=== PATIENT | female | born 1970 | race Hispanic/Latino ===

== ENCOUNTER 2017-11-25 22:26 | Emergency (ER) | payer SELFPAY ==
[2017-11-25 23:22] LABS: Basophils # (Auto) 0.1 K/mm3 (0.0-0.1); Eosinophils # (Auto) 0.4 K/mm3 (0.0-0.4); Hematocrit 39.5 % (30.3-42.9); Hemoglobin 13.1 gm/dl (10.1-14.3); Lymphocytes # (Auto) 1.6 K/mm3 (1.2-5.4); Mean Corpuscular HGB Conc 33 % (30-34); Mean Corpuscular Hemoglobin 29 pg (28-32); Mean Corpuscular Volume 87 fl (79-97); Monocytes # (Auto) 0.6 K/mm3 (0.0-0.8); Monocytes % (Auto) 7.7 % (0.0-7.3); Platelet Count 269 K/mm3 (140-440); Red Blood Count 4.56 M/mm3 (3.65-5.03); Red Cell Distribution Width 14.5 % (13.2-15.2)
[2017-11-25 23:35] LABS: BUN/Creatinine Ratio 25; Blood Urea Nitrogen 15 mg/dL (7-17); Calcium 8.5 mg/dL (8.4-10.2); Hemolysis Index 4
[2017-11-26 04:05] LABS: Bilirubin,Urine NEG (Negative); Blood,Urine NEG (Negative); Color,Urine Yellow (Yellow); Mucus,Urine FEW /HPF; Protein,Urine <15 mg/dL mg/dL (Negative); Urobilinogen,Urine < 2.0 mg/dL (<2.0)
[2017-11-26 04:09] LABS: Benzodiazepines Screen,Urine PRESUMPTIVE NEGATIVE; Cannabinoid Screen,Urine PRESUMPTIVE NEGATIVE; Methadone Screen,Urine PRESUMPTIVE NEGATIVE; Opiate Screen,Urine PRESUMPTIVE NEGATIVE
[2017-11-26 04:10] LABS: Cocaine Screen,Urine PRESUMPTIVE NEGATIVE
[2017-11-26 04:53] LABS: Amphetamine Screen,Urine PRESUMPTIVE POSITIVE
--- NOTE | 2017-11-26 12:47 | Emergency Department Report ---
ED Psych HPI - General Chief Complaint: Psych Stated Complaint: MENTAL HEALTH Time Seen by Provider: 11/26/17 10:00 Source: patient Mode of arrival: Ambulatory Limitations: No Limitations - History of Present Illness Initial Comments: Patient son states that his mom believed that someone is trying to kill her and her mother and he called the Police Department per nurses note documentation. Patient is confused and does not know why she is in the hospital. She said she' s been hearing voices has seen things recently. She also admitted to doing street drugs. She looks very disoriented and incoherent. Patient is a poor historian. She did not deny what is documented in the chart regarding her thinking someone wants to kill her and her mother. Complaint: feels depressed -: Sudden Associated Psychiatric Symptoms: racing thoughts, auditory hallucinations, visual hallucinations, delusions History of same: Yes Quality: constant Improves With: none Worsens With: none Context: recent drug abuse Associated Symptoms: denies other symptoms Treatments Prior to Arrival: none - Related Data Allergies Allergy/AdvReac Type Severity Reaction Status Date / Time Penicillins Allergy Swelling Verified 11/25/17 22:32 ED Review of Systems ROS: Stated complaint: MENTAL HEALTH Other details as noted in HPI Comment: All other systems reviewed and negative Constitutional: denies: chills, fever Eyes: vision change ENT: denies: ear pain Respiratory: no symptoms reported. denies: shortness of breath Cardiovascular: denies: chest pain, palpitations Endocrine: no symptoms reported Gastrointestinal: denies: abdominal pain, nausea, vomiting, diarrhea Genitourinary: denies: urgency, dysuria, frequency Musculoskeletal: denies: back pain, joint swelling, myalgia Skin: denies: rash, lesions, change in color Neurological: denies: headache, weakness, numbness, paresthesias Psychiatric: auditory hallucinations, visual hallucinations. denies: homicidal thoughts, suicidal thoughts Hematological/Lymphatic: denies: easy bleeding, easy bruising ED Past Medical Hx - Past Medical History Previous Medical History?: Yes Hx Asthma: Yes Additional medical history: breast CA, - Surgical History Past Surgical History?: Yes Additional Surgical History: tonsilectomy, lumpectomy - Social History Smoking Status: Current Every Day Smoker Substance Use Type: None ED Physical Exam - General Limitations: No Limitations General appearance: alert, in no apparent distress, anxious - Head Head exam: Present: atraumatic, normocephalic, normal inspection - Eye Eye exam: Present: normal appearance, PERRL, EOMI Pupils: Present: normal accommodation - ENT ENT exam: Present: normal exam, normal orophraynx, mucous membranes moist - Neck Neck exam: Present: normal inspection, full ROM. Absent: tenderness - Respiratory Respiratory exam: Present: normal lung sounds bilaterally - Cardiovascular Cardiovascular Exam: Present: regular rate - GI/Abdominal GI/Abdominal exam: Present: soft, normal bowel sounds. Absent: tenderness, guarding - Extremities Exam Extremities exam: Present: normal inspection, full ROM - Back Exam Back exam: Present: full ROM - Neurological Exam Neurological exam: Present: alert - Skin Skin exam: Present: warm, dry, intact, normal color ED Course Vital Signs 11/25/17 11/26/17 22:32 10:41 Temperature 98.7 F 98.1 F Pulse Rate 98 H 78 Respiratory 20 18 Rate Blood Pressure 125/82 Blood Pressure 113/82 [Right] O2 Sat by Pulse 98 98 Oximetry - Reevaluation(s) Reevaluation #1: 11/26/17 12:51 1013 for filled out and psychiatric consult initiated. ED Medical Decision Making - Lab Data Result diagrams: 11/25/17 23:01 11/25/17 23:01 - Medical Decision Making Delusional disorder. Auditory or visual hallucination. Critical care attestation.: If time is entered above; I have spent that time in minutes in the direct care of this critically ill patient, excluding procedure time. ED Disposition Clinical Impression: Delusional disorder currently symptomatic, Hallucinations, Amphetamine abuse Disposition: DC/TX-65 PSY HOSP/PSY UNIT Is pt being admited?: No Does the pt Need Aspirin: No Condition: Stable Referrals: KARLEE HERNANDEZ MD [Primary Care Provider] - 3-5 Days
[2017-11-26] MEDS ORDERED: HABITROL TD ONE (16:00)
[2017-11-26] MEDS: HABITROL TD SCH (17:20)
--- NOTE | 2017-11-26 18:46 | Consultation ---
History of Present Illness - Reason for Consult Consult date: 11/26/17 Reason for consult: psychiatric evaluation, paranoia - Chief Complaint Chief complaint: "My family was concerned." - History of Present Psychiatric Illness 47 year old WF seen for psychiatric evaluation in the ER. Per the record: Patient's son states that his mom believed that someone is trying to kill he and her mother. He called the Police Department per nurses note documentation. Per the record, she has been hearing voices has seen things recently. She preferred to rest rather than participate in an interview. She admitted to using methamphetamine. She states she does not use it often. She states she was paranoid but is feeling better. She denies any mental health history. She asks to smoke. She is agreeable to a nicotine patch. She smokes 1PPD. Medications and Allergies Allergies Allergy/AdvReac Type Severity Reaction Status Date / Time Penicillins Allergy Swelling Verified 11/25/17 22:32 Active Meds: Active Medications Nicotine (Habitrol) 21 mg TD QAM [facility] Last Admin: 11/26/17 17:20 Dose: 21 mg Past psychiatric history - Past Medical History Past Medical History: other (asthma, breast ca) Past Surgical History: Other (lumpectomy) - past Psychiatric treatment and history psychiatric treatment history: denies - Social History Social history: lives with family Mental Status Exam - Vital signs Last Vital Signs Temp 98.1 F 11/26/17 10:41 Pulse 78 11/26/17 10:41 Resp 18 11/26/17 10:41 BP 113/82 11/26/17 10:41 Pulse Ox 98 11/26/17 10:41 - Exam Orientation: time, place, person Affect: other (blunted) Mood: other (indifferent) Thought content: paranoia (reports it has improved) Thought Process: Intact (limited in scope) Perceptions: auditory, hallucinations (denies now) Speech: normal rate and pattern Concentration: other (prefers to sleep) Motor activity: normal Level of consciousness: other (drowsy) Memory: Intact Interaction: apathetic Results Result Diagrams: 11/25/17 23:01 11/25/17 23:01 Abnormal lab results 11/25/17 11/25/17 11/25/17 Range/Units 23:01 23:01 23:01 [place] % (Auto) 7.7 H (0.0-7.3) % Eos % (Auto) 6.0 H (0.0-4.3) % Sodium 136 L (137-145) mmol/L Potassium 3.5 L (3.6-5.0) mmol/L Carbon Dioxide 20 L (22-30) mmol/L Creatinine 0.6 L (0.7-1.2) mg/dL Glucose 116 H (65-100) mg/dL Acetaminophen < 5.0 L (10.0-30.0) ug/mL All other labs normal. 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 Hold off on medications unless psychotic symptoms persist nicotine patch, 21mg TD daily ordered
[2017-11-27] MEDS: HABITROL TD SCH (11:50)
--- NOTE | 2017-11-27 12:16 | Progress Note ---
Subjective - Reason for Consult Consult date: 11/27/17 Reason for consult: Psychiatry Follow-up - Chief Complaint Chief complaint: "Sanjay" 47 year old WF seen for psychiatric evaluation in the ER. Per the record: Patient's son states that his mom believed that someone is trying to kill he and her mother. He called the Police Department per nurses note documentation. Per the record, she has been hearing voices has seen things recently. Today the patient is calm and cooperative during the assessment. She stated that she get "high on meth sometimes." She feels that she can stop using "meth" at any time. She stated being in rehabs for substance abuse in the past. She denies being depressed, having any manic episodes in the past, or having a psychotic do when asked. She denies SI/HI's and AVH's. Mental Status Exam - Vital signs Last Vital Signs Temp 97.9 F 11/27/17 07:28 Pulse 83 11/27/17 07:28 Resp 18 11/27/17 07:28 BP 123/80 11/27/17 07:28 Pulse Ox 97 11/27/17 07:28 - Exam Narrative exam: MSE: Appearance: calm, cooperative Behavior: regular eye contact Speech: regular rate and tone Mood: "okay" Affect: congruent to mood Thought Process: circumstantial Thought Content: denies SI/HI's and AVH's, disorganized Motor Activity: sitting up in bed Cognition: A/O x3 Insight: variable Judgment: variable Assessment and Plan Impression: Substance Induced Psychosis. Substance Use DO (amphetamines). Today the patient is calm and cooperative during the assessment. DDx: R/O Mood DO Recommendation: Evaluate 1013 in 24 hours and gather collateral information to help determine proper treatment and dispo. Hold off on medications unless psychotic symptoms persist.
[2017-11-28 08:01] VITALS: BP 104/54
--- NOTE | 2017-11-28 10:28 | Progress Note ---
Subjective - Reason for Consult Consult date: 11/28/17 Reason for consult: Psychiatry Follow-up - Chief Complaint Chief complaint: "Good morning" 47 year old WF seen for psychiatric evaluation in the ER. Per the record: Patient's son states that his mom believed that someone is trying to kill he and her mother. He called the Police Department per nurses note documentation. Per the record, she has been hearing voices has seen things recently. Today the patient is calm and cooperative during the assessment. She stated that she plan to reside with a friend Pedro Garcia. Per collateral information from Pedro Garcia at [phone] he stated that she has no psy hx to his knowledge. He stated that he would pick this patient up once discharged. The patient is adamant about wanting to stay off recreational drugs. She denies SI/HI's and AVH's. s Mental Status Exam - Vital signs Last Vital Signs Temp 98 F 11/28/17 07:26 Pulse 82 11/28/17 07:26 Resp 16 11/28/17 07:26 BP 104/54 11/28/17 07:26 Pulse Ox 100 11/28/17 07:26 - Exam Narrative exam: MSE: Appearance: calm, cooperative Behavior: regular eye contact Speech: regular rate and tone Mood: "okay" Affect: congruent to mood Thought Process: circumstantial Thought Content: denies SI/HI's and AVH's Motor Activity: sitting up in bed Cognition: A/O x3 Insight: fair Judgment: fair Assessment and Plan Impression: Substance Induced Psychosis. Substance Use DO (amphetamines). Today the patient is calm and cooperative during the assessment. Psychosis has resolved. DDx: R/O Mood DO Recommendation: Rescind 1013. The patient given outpatient rehab services for [facility]. Discussed the importance to abstain from recreational drug use with patient.
[2017-11-28] MEDS: HABITROL TD SCH (10:32)
--- NOTE | 2017-11-28 14:47 | Event Note ---
Date: 11/28/17 Patient has no complaints at this time. She is clinically sober at this time. She is alert and oriented 3. She walks with a steady gait, and has a [place] Scale of 15. She is clinically sober at this time, and her 1013 has been discontinued. Patient will be discharged to follow up with an outpatient primary care doctor, she is instructed to discontinue amphetamine consumption. Vital Signs 11/25/17 11/26/17 11/26/17 22:32 10:41 19:43 Temperature 98.7 F 98.1 F Pulse Rate 98 H 78 Respiratory 20 18 18 Rate Blood Pressure 125/82 Blood Pressure 113/82 [Right] O2 Sat by Pulse 98 98 Oximetry 11/26/17 11/27/17 11/27/17 19:53 07:28 22:15 Temperature 98.8 F 97.9 F 98.5 F Pulse Rate 83 83 96 H Respiratory 18 18 18 Rate Blood Pressure Blood Pressure 113/73 123/80 106/61 [Right] O2 Sat by Pulse 96 97 96 Oximetry 11/28/17 07:26 Temperature 98 F Pulse Rate 82 Respiratory 16 Rate Blood Pressure Blood Pressure 104/54 [Right] O2 Sat by Pulse 100 Oximetry Lab Results 11/25/17 11/25/17 11/25/17 Range/Units 23:01 23:01 23:01 WBC (4.5-11.0) K/mm3 RBC (3.65-5.03) M/mm3 Hgb (10.1-14.3) gm/dl Hct (30.3-42.9) % MCV (79-97) fl MCH (28-32) pg MCHC (30-34) % RDW (13.2-15.2) % Plt Count (140-440) K/mm3 Lymph % (Auto) (13.4-35.0) % [place] % (Auto) (0.0-7.3) % Eos % (Auto) (0.0-4.3) % Baso % (Auto) (0.0-1.8) % Lymph # (1.2-5.4) K/mm3 [place] # (0.0-0.8) K/mm3 Eos # (0.0-0.4) K/mm3 Baso # (0.0-0.1) K/mm3 Seg Neutrophils % (40.0-70.0) % Seg Neutrophils # (1.8-7.7) K/mm3 Sodium 136 L (137-145) mmol/L Potassium 3.5 L (3.6-5.0) mmol/L Chloride 100.0 (98-107) mmol/L Carbon Dioxide 20 L (22-30) mmol/L Anion Gap 20 mmol/L BUN 15 (7-17) mg/dL Creatinine 0.6 L (0.7-1.2) mg/dL Estimated GFR > 60 ml/min BUN/Creatinine Ratio 25 % Glucose 116 H (65-100) mg/dL Calcium 8.5 (8.4-10.2) mg/dL Urine Color (Yellow) Urine Turbidity (Clear) Urine pH (5.0-7.0) Ur Specific [place] (1.003-1.030) Urine Protein (Negative) mg/dL Urine Glucose (UA) (Negative) mg/dL Urine Ketones (Negative) mg/dL Urine Blood (Negative) Urine Nitrite (Negative) Urine Bilirubin (Negative) Urine Urobilinogen (<2.0) mg/dL Ur Leukocyte Esterase (Negative) Urine WBC (Auto) (0.0-6.0) /HPF Urine RBC (Auto) (0.0-6.0) /HPF U Epithel Cells (Auto) (0-13.0) /HPF Urine Mucus /HPF Salicylates 11.2 (2.8-20.0) mg/dL Urine Opiates Screen Urine Methadone Screen Acetaminophen < 5.0 L (10.0-30.0) ug/mL Ur Barbiturates Screen Ur Phencyclidine Scrn Ur Amphetamines Screen U Benzodiazepines Scrn Urine Cocaine Screen U Marijuana (THC) Screen Drugs of Abuse Note Plasma/Serum Alcohol (0-0.07) % 11/25/17 11/25/17 11/26/17 Range/Units 23:01 23:01 03:35 WBC 7.5 (4.5-11.0) K/mm3 RBC 4.56 (3.65-5.03) M/mm3 Hgb 13.1 (10.1-14.3) gm/dl Hct 39.5 (30.3-42.9) % MCV 87 (79-97) fl MCH 29 (28-32) pg MCHC 33 (30-34) % RDW 14.5 (13.2-15.2) % Plt Count 269 (140-440) K/mm3 Lymph % (Auto) 22.0 (13.4-35.0) % [place] % (Auto) 7.7 H (0.0-7.3) % Eos % (Auto) 6.0 H (0.0-4.3) % Baso % (Auto) 1.0 (0.0-1.8) % Lymph # 1.6 (1.2-5.4) K/mm3 [place] # 0.6 (0.0-0.8) K/mm3 Eos # 0.4 (0.0-0.4) K/mm3 Baso # 0.1 (0.0-0.1) K/mm3 Seg Neutrophils % 63.3 (40.0-70.0) % Seg Neutrophils # 4.7 (1.8-7.7) K/mm3 Sodium (137-145) mmol/L Potassium (3.6-5.0) mmol/L Chloride (98-107) mmol/L Carbon Dioxide (22-30) mmol/L Anion Gap mmol/L BUN (7-17) mg/dL Creatinine (0.7-1.2) mg/dL Estimated GFR ml/min BUN/Creatinine Ratio % Glucose (65-100) mg/dL Calcium (8.4-10.2) mg/dL Urine Color Yellow (Yellow) Urine Turbidity Clear (Clear) Urine pH 5.0 (5.0-7.0) Ur Specific [place] 1.014 (1.003-1.030) Urine Protein <15 mg/dl (Negative) mg/dL Urine Glucose (UA) Neg (Negative) mg/dL Urine Ketones Neg (Negative) mg/dL Urine Blood Neg (Negative) Urine Nitrite Neg (Negative) Urine Bilirubin Neg (Negative) Urine Urobilinogen < 2.0 (<2.0) mg/dL Ur Leukocyte Esterase Neg (Negative) Urine WBC (Auto) 1.0 (0.0-6.0) /HPF Urine RBC (Auto) 1.0 (0.0-6.0) /HPF U Epithel Cells (Auto) 1.0 (0-13.0) /HPF Urine Mucus Few /HPF Salicylates (2.8-20.0) mg/dL Urine Opiates Screen Urine Methadone Screen Acetaminophen (10.0-30.0) ug/mL Ur Barbiturates Screen Ur Phencyclidine Scrn Ur Amphetamines Screen U Benzodiazepines Scrn Urine Cocaine Screen U Marijuana (THC) Screen Drugs of Abuse Note Plasma/Serum Alcohol < 0.01 (0-0.07) % 11/26/17 Range/Units 03:35 WBC (4.5-11.0) K/mm3 RBC (3.65-5.03) M/mm3 Hgb (10.1-14.3) gm/dl Hct (30.3-42.9) % MCV (79-97) fl MCH (28-32) pg MCHC (30-34) % RDW (13.2-15.2) % Plt Count (140-440) K/mm3 Lymph % (Auto) (13.4-35.0) % [place] % (Auto) (0.0-7.3) % Eos % (Auto) (0.0-4.3) % Baso % (Auto) (0.0-1.8) % Lymph # (1.2-5.4) K/mm3 [place] # (0.0-0.8) K/mm3 Eos # (0.0-0.4) K/mm3 Baso # (0.0-0.1) K/mm3 Seg Neutrophils % (40.0-70.0) % Seg Neutrophils # (1.8-7.7) K/mm3 Sodium (137-145) mmol/L Potassium (3.6-5.0) mmol/L Chloride (98-107) mmol/L Carbon Dioxide (22-30) mmol/L Anion Gap mmol/L BUN (7-17) mg/dL Creatinine (0.7-1.2) mg/dL Estimated GFR ml/min BUN/Creatinine Ratio % Glucose (65-100) mg/dL Calcium (8.4-10.2) mg/dL Urine Color (Yellow) Urine Turbidity (Clear) Urine pH (5.0-7.0) Ur Specific [place] (1.003-1.030) Urine Protein (Negative) mg/dL Urine Glucose (UA) (Negative) mg/dL Urine Ketones (Negative) mg/dL Urine Blood (Negative) Urine Nitrite (Negative) Urine Bilirubin (Negative) Urine Urobilinogen (<2.0) mg/dL Ur Leukocyte Esterase (Negative) Urine WBC (Auto) (0.0-6.0) /HPF Urine RBC (Auto) (0.0-6.0) /HPF U Epithel Cells (Auto) (0-13.0) /HPF Urine Mucus /HPF Salicylates (2.8-20.0) mg/dL Urine Opiates Screen Presumptive negative Urine Methadone Screen Presumptive negative Acetaminophen (10.0-30.0) ug/mL Ur Barbiturates Screen Presumptive negative Ur Phencyclidine Scrn Presumptive negative Ur Amphetamines Screen Presumptive positive U Benzodiazepines Scrn Presumptive negative Urine Cocaine Screen Presumptive negative U Marijuana (THC) Screen Presumptive negative Drugs of Abuse Note Disclamer Plasma/Serum Alcohol (0-0.07) %
== END 2017-11-28 15:51 | disposition home or self-care (01) ==
LOC: EEVIPCON 22:26 → ED 22:26
DX: F22 Delusional disorders (principal); R44.0 Auditory hallucinations; R44.1 Visual hallucinations; F15.10 Other stimulant abuse, uncomplicated; J45.909 Unspecified asthma, uncomplicated
CPT/HCPCS: 36415; 80048; 80307; 81001; 85025; 99285; G0480; 80320